=== PATIENT | female | born 1995 | race Caucasian/White ===

== ENCOUNTER 2022-01-04 10:01 | Day surgery (SDC) | payer OTHER ==
[2021-12-31 14:19] LABS: COVID AG,FIA SOURCE NASOPHARYNGEAL
[~2022-01-04] VITALS: Ht 175.3 cm; Wt 92.1 kg
[~2022-01-04 10:01] MED LIST: RINGERS SOLUTION,LACTATED 1,000 ML IV ONE
[2022-01-04] MEDS ORDERED: FERR325T23 PO (10:22)
[2022-01-04] MEDS ORDERED: LORA10TA7 PO (10:22)
[2022-01-04] MEDS ORDERED: CHOL200074 PO (10:22)
[2022-01-04] MEDS ORDERED: METOCLOPRAMIDE HCL 5 MG/ML 2 ML VIAL IVP ONE (12:00)
[2022-01-04] MEDS ORDERED: LIDOCAINE/PF 2% 5 ML VIAL IM ONE (12:00)
[2022-01-04] MEDS ORDERED: MIDAZOLAM HCL 2 MG/2 ML VIAL IVP ONE (12:00)
[2022-01-04] MEDS ORDERED: ONDANSETRON HCL 4 MG/2 ML VIAL IVP ONE (12:00)
[2022-01-04] MEDS ORDERED: ROCURONIUM BROMIDE 10 MG/ML 5 ML VIAL IVP ONE (12:00)
[2022-01-04] MEDS ORDERED: FentaNYL CITRATE PF 100 MCG/2 ML VIAL IVP ONE (12:00)
[2022-01-04] MEDS ORDERED: PROPOFOL 1% 20 ML VIAL IVP ONE (12:00)
[2022-01-04] MEDS ORDERED: DEXAMETHASONE SOD PHOS 4 MG/ML VIAL IVP ONE (12:00)
[2022-01-04] MEDS ORDERED: BUPIVACAINE HCL/PF 0.25% 30 ML VIAL ONE (12:20)
[2022-01-04] MEDS ORDERED: SUGAMMADEX SODIUM 200 MG/2 ML VIAL IVP ONE (13:22)
[2022-01-04] MEDS ORDERED: FentaNYL CITRATE PF 100 MCG/2 ML VIAL ONE (14:05)
[2022-01-04] MEDS ORDERED: FLUO20CA36 PO (14:24)
[2022-01-04] MEDS: FentaNYL CITRATE PF 100 MCG/2 ML VIAL IVP PRN ×2 (14:25→14:29)
== END 2022-01-04 15:25 | disposition home or self-care (01) ==
LOC: SURGERY 10:01
PROVIDERS: ATTEND Student in an Organized Health Care Education/Training Program
DX: N75.0 Cyst of Bartholin's gland (principal); D64.9 Anemia, unspecified; Z88.8 Allergy status to other drugs, medicaments and biological substances
CPT/HCPCS: 36415; 56440; 58300; 84703; 86850; 86900; 86901; 87070; 87205; 87426; C9803; J1100; J2250; J2405; J2704; J2765; J3010; J3490 ×3; J7120; J7298; Q9967